=== PATIENT | female | born 1960 | race Caucasian/White ===

== ENCOUNTER 2020-06-06 14:30 | Outpatient (RCR) | payer OTHER, SELFPAY ==
--- NOTE | 2020-05-29 13:04 | HP.PTEVAL ---
Patient's Visit Information ANTHONY TUCKER is a 60 year old F referred to Physical Therapy by Dr. Ayo De Leon MD with a diagnosis of dizzyness. Date of Evaluation: 05/29/20 Physical Therapist: Eulalio Wallace, DPT, OCS, CSCS - Visit Plan Frequency: 1-2x /Week Duration: 2-4 Weeks Plan: 1-2x/week for 2-4 weeks for positiona treatemnts and monitor need for adaptation ex. Next visit check positional and consider BD vs oculomotor exam - Subjective Been dealing with dizzyness for one month. Saw ENT and he had her sleep sitting up for a while and L side for 5 nights and it did not help. Woke up a month ago sleeping on R side and got dizzya nd fell back in bed and started feelign nauseous. Still dizzy when got up, dry heaved in bathroom and went back to bed. Missed work that day. Dizzy every time she moved that day. Still bad the next day and went to doctor still very dizzy in wheelchair. Got dizzy meds and nausea meds and nausea improved but still dizzy. Saw ENT after that and did hearing test. Describes R postiive positional test but not dizzy. Then gave sleep instructions. Now is still dizzy in morning for 15 seconds. Also gets this in shower. And lying in bed at night. Feels pretty normal in between. Impacts her mostly at night and in am, not much during day. 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 Sleep is Ok with melatonin. Aviods cleaning and yard work volume at home. - Objective Walks normal and trasnfers normal supine and chair and safe. Cervical aROM WFL and without pain. - L hallpike lm. + r hallpike lm for up torsional quick nystagmus and gentle dizzyness similar to what she gets at home. treated with R epleya nd instruct x 2 today. 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 For the Purpose of:: To increase tolerance to activity/condition/position Thank you for the opportunity to evaluate your patient. For Medicare and Medicare HMO plans, please review the plan of care and approve it. It will need to be FAXED BACK to us at [phone] for Medicare purposes. For Medicare only, by signing this I certify the plan of care. Please let me know if there are questions or concerns regarding this plan of care. Physician Signature: Date:
--- NOTE | 2020-08-05 17:25 | HP.PT.NRP ---
ANTHONY TUCKER was seen in my office for initial evaluation on 05/29/20. The following Plan of Care was established for this patient: Initial Frequency: 1-2x /Week Initial Duration: 2-4 Weeks Patient/Client Instruction: Educate patient on: Condition, Plan of Care For the Purpose of:: To increase tolerance to activity/condition/position For the Purpose of:: To increase tolerance to activity/condition/position This patient was last seen in our office 06/06/20. Pertinent comments regarding their Physical therapy will appear below: Pt seen 2 visits of POC and treated with positional dizzyness maneuvers adn exercises. Was to continue POC and f/u weekly but did not attend any further visits. At this point, it has been almost two months and I will disocntinue due to nonattendance. At this point I will be discontinuing this patient from physical therapy. I would be happy to see this patient again in the future if found appropriate by the physician. Thank you! Eulalio Wallace, DPT, OCS, CSCS
== END 2020-06-06 19:00 | disposition home or self-care (01) ==
LOC: PT 14:30
PROVIDERS: Referring Provider Otolaryngology; Visit Provider Otolaryngology
DX: R42 Dizziness and giddiness (principal)
CPT/HCPCS: 97161; 97530